=== PATIENT | male | born 1990 | race Caucasian/White ===

== ENCOUNTER 2023-02-09 10:23 | Emergency (ER) | payer OTHER ==
[~2023-02-09] VITALS: Ht 185.4 cm; Wt 133.8 kg
[2023-02-09 10:41] VITALS: BP 141/83
[2023-02-09] MEDS ORDERED: AMOX-117 PO (11:27)
[2023-02-09] MEDS ORDERED: HYDR-3965 PO (11:27)
--- NOTE | 2023-02-09 11:33 | NUR ---
PT ASSESSED AND TX BY ER PROVIDER MISTY IN ROOM 18 BEFORE BEING ASSIGNED A NURSE.
== END 2023-02-09 11:38 | disposition home or self-care (01) ==
LOC: ER 10:24
DX: K04.7 Periapical abscess without sinus (principal); R07.9 Chest pain, unspecified; Z79.899 Other long term (current) drug therapy
CPT/HCPCS: 99283

== ENCOUNTER 2023-06-07 10:12 | Emergency (ER) | payer OTHER ==
[~2023-06-07] VITALS: Ht 185.4 cm; Wt 126.2 kg
[2023-06-07 10:59] VITALS: BP 126/84
[2023-06-07] MEDS ORDERED: HYDR-3972 PO (11:35)
[2023-06-07] MEDS ORDERED: AMOX-117 PO (11:35)
[2023-06-07] MEDS ORDERED: NAPR-56 PO (11:35)
== END 2023-06-07 12:00 | disposition home or self-care (01) ==
LOC: ER 10:12
DX: K04.7 Periapical abscess without sinus (principal); Z79.2 Long term (current) use of antibiotics; Z79.899 Other long term (current) drug therapy
CPT/HCPCS: 99283